=== PATIENT | female | born 1965 | race Asian ===

== ENCOUNTER 2019-06-23 23:09 | Emergency (ER) | payer BC ==
[~2019-06-23] VITALS: Ht 165.1 cm; Wt 58.5 kg
--- NOTE | 2019-06-23 23:25 | NUR ---
ED Nurse Note: Recieved pt from home, here with c/o flu like s/s for past 3 days wuith headache, sore throat and cough, also possible intermittent fevers, pt is anxious and slightly restless, denies cp, no sob or labored breathing noted, will resume care as ordered and continue to closely monitor.
--- NOTE | 2019-06-24 01:19 | Emergency Room Report ---
History of Present Illness General Chief Complaint: Flu Like Symptoms Source: Patient Present Illness HPI Patient presents with sore throat and upper respiratory symptoms for 2 days. She also has muscle aches which are knifelike through her thighs. No swelling. She has a slight sore throat. She has a mild cough that is nonproductive. She denies chest pain or shortness of breath. No neck stiffness. She denies any dysuria. Headache began gradually. 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 Now: No Reviewed Nursing Documentation: PMH: Agreed; PSxH: Agreed Nursing Documentation-PMH Past Medical History: No History, Except For Physical Exam Vital Signs Date Time Temp Pulse Resp B/P (MAP) Pulse Ox O2 Delivery O2 Flow Rate FiO2 06/23/19 23:14 99.3 96 14 99/55 (70) 95 Room Air Medical Decision Making Diagnostic Impression: Primary Impression: Upper respiratory infection Qualified Codes: J06.9 - Acute upper respiratory infection, unspecified Additional Impressions: Headache Qualified Codes: G44.89 - Other headache syndrome Viral syndrome ER Course Patient still feeling sniffing and headache after ibuprofen. Labs ordered and EKG. In addition Reglan and Benadryl. Patient refuses to have further work up and wants to go home. Microbiology Date/Time Source Procedure Growth Status 06/23/19 23:30 Nose - Final Complete 06/23/19 23:30 Nose - Final Complete Last Vital Signs Date Time Temp Pulse Resp B/P (MAP) Pulse Ox O2 Delivery O2 Flow Rate FiO2 06/24/19 01:50 98.8 83 16 104/62 97 Room Air Status: improved Disposition: HOME, SELF-CARE Condition: Improved Scripts No Active Prescriptions or Reported Meds Referrals: [facility] (PCP) Blaze Barcenas MD Jun 24, 2019 01:19
[2019-06-24 01:30] VITALS: BP 104/62
[2019-06-24] MEDS ORDERED: Metoclopramide 10mg/2ml Inj IVP ONE (01:30)
[2019-06-24] MEDS ORDERED: DiphenhydrAMINE 50mg/ml Inj IVP ONE (01:30)
--- NOTE | 2019-06-24 01:40 | NUR ---
ER DISCHARGE NOTE: Patient is cleared to be discharged per ERMD, pt is aox4, on room air, with stable vital signs. pt was given dc and prescription instructions, pt was able to verbalize understanding, pt id band removed without complications. pt is able to ambulate with steady gait. pt took all belongings. pt refused further treatment, no iv line or labs done, md aware of refusal prior to d/c to home.
[2019-06-24 01:50] VITALS: BP 104/62
== END 2019-06-24 01:50 | disposition home or self-care (01) ==
LOC: EMR 23:31
DX: J06.9 Acute upper respiratory infection, unspecified (principal); G44.89 Other headache syndrome; B34.9 Viral infection, unspecified; Z88.6 Allergy status to analgesic agent
CPT/HCPCS: 86710; 99282